=== PATIENT | female | born 1955 | race Asian ===

== ENCOUNTER 2024-11-19 23:02 | Inpatient (IN) | payer OTHER, SELFPAY ==
[2024-11-19] VITALS (10 sets, daily range): BP systolic 155–199; BP diastolic 74–105; BMI 18.4
[2024-11-19 16:01] LABS: % Basophils 0.5 % (0-2); % Eosinophils 0.3 % (0-6); % Immature Granulocytes 0.3 % (0-0.5); % Lymphocytes 14.2 % (20.5-51.1); % Monocytes 7.4 % (1.7-9.3); % Neutrophils 77.3 % (42.2-75.2); Absolute Basophils 0.1 10^3/uL (0-0.2); Absolute Eosinophils 0.1 10^3/uL (0-0.7); Absolute Immature Granulocytes 0.1 10^3/uL (0-0.05); Absolute Lymphocytes 2.5 10^3/uL (1.2-3.4); Absolute Monocytes 1.3 10^3/uL (0.1-0.6); Absolute Neutrophils 13.7 10^3/uL (1.4-6.5); Hemoglobin 15.2 g/dL (12.0-16.0); Mean Corp Hgb Conc. 32.3 g/dL (33.0-37.0); Mean Corpuscular Volume 89.7 fL (81.0-99.0); Mean Platelet Volume 9.9 fL (7.4-10.4); Nucleated Red Blood Cells % 0 %; Platelet Count 335 10^3/uL (130-400); Red Blood Cell Count 5.24 10^6/uL (4.20-5.40); Red Cell Dist. Width 13.9 % (11.5-14.5); White Blood Cell Count 17.7 10^3/uL (4.8-10.8)
[2024-11-19 16:08] LABS: INR 1.14; PT 14.9 Sec (11.4-14.6)
[2024-11-19 16:19] LABS: ALT (SGPT) 43 U/L (0-35); AST (SGOT) 46 U/L (14-36); Albumin 4.6 g/dl (3.5-5.0); Alkaline Phosphatase 68 U/L (38-126); Blood Urea Nitrogen 16 mg/dl (7-17); Calcium 10.1 mg/dl (8.4-10.2); Carbon Dioxide 25 mmol/L (22-30); Chloride 103 mmol/L (98-107); Glucose 127 mg/dl (70-99); Potassium 4.3 mmol/L (3.5-5.1); Sodium 139 mmol/L (135-145); Total Bilirubin 1.6 mg/dl (0.2-1.3); Total Protein 8.1 g/dl (6.3-8.2); eGFR > 60.00
[2024-11-19 16:32] LABS: NT-proBNP 10000 pg/ml; Troponin I 0.546 ng/ml
--- NOTE | 2024-11-19 17:39 | ED.GENMED ---
Addendum entered and electronically signed by Salazar Camp DO 11/19/24 19:36:
Update, patient originally from [place] apparently saw some retail performance coach at the [facility] please his correction was not seen at [facility]
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
Original Note:
History of Present Illness
General
Chief Complaint: Breathing Problem
Source: patient
Exam Limitations: none
Time Seen by Provider: 11/19/24 17:31
Nursing documentation reviewed up to this point in time: agreed with
History of Present Illness
History of Present Illness:
68-year-old female history of pacemaker, former smoker followed at a cardiology practice in [facility], presents with 3 days of shortness of breath no fever describes some pressure in her chest, with leg edema not on a diuretic does not sound like
she has ever had a cardiac stent placed this is not certain not on aspirin or Plavix
Past History
Past History
ED Past Medical History: Arrthythmia
ED Past Surgical History: Cardiac (Pacemaker)
Social History
Tobacco: Former smoker
Alcohol: None
Drug: None
Personal:
Living: with family
Employment: Employed
Review of Systems
Review of Systems
All Other Systems: Not applicable
Constitutional: Reports fatigue
Respiratory: Reports cough and trouble breathing
Cardiac: Reports chest pain
Phy Exam
Physical Exam
Physical Exam:
Physical Exam
General: 68-year-old female sitting upright in moderate respiratory distress
Neck: Positive JVD
Heart: Regular
Lungs: Crackles bilateral
Abdomen: Nontender
Neuro: alert and oriented. no focal neurological deficits
Skin: no rash
Psychiatric: well kept. interactive and cooperative
Extremities: 2+ edema
Scores
Heart Failure Risk
Heart Failure Risk Score: Yes
History of Stroke or TIA: No
History of intubation for respiratory distress: No
Heart rate on ED arrival >/= 110: Yes
SaO2 <90% on arrival on room air: Yes
HR >/=110 during 3min walk test (or too ill to perform test): Yes
ECG has acute ischemic changes: No
Urea >/=12mmol/L (BUN 33.6mg/dL): No
Serum CO2>/=35mmol/L: No
Troponin I or T elevated to MT Level (0.4mg/dL): Yes
NT-proBNP >/=5,000ng/L (5,000pg/ml): Yes
HF Risk Score: 6
Admission Status: VERY HIGH RISK 55.3% Consider admission to hospital
Course
Orders/Labs/Results
Orders:
Orders
11/19/24 15:14
Electrocardiogram (*1) Urgent
Reason for Study: Shortness of Breath
EKG- Treatment ONCE
11/19/24 15:40
Interrogate Pacemaker- Treatment ONCE
11/19/24 15:49
Complete Blood Count/With Diff Urgent
Comprehensive Metabolic Panel Urgent
NT-proBNP Urgent
Prothrombin Time Urgent
Troponin I Urgent
11/19/24 17:32
CR Chest Portable - 1 View Urgent
Comment:
Reason For Exam: sob
Reason Study Needs to be Portable: Patient Unstable
11/19/24 17:38
Aspirin 325 mg PO NOW STA
Enalaprilat [Vasotec] 0.625 mg IV NOW STA
Furosemide [Lasix] 80 mg IV NOW STA
Abnormal Lab Results
11/19/24
15:49
WBC 17.7 H 10^3/uL
(4.8-10.8)
MCHC 32.3 L g/dL
(33.0-37.0)
Abs Immat Gran (auto) 0.1 H 10^3/uL
(0-0.05)
Absolute Neuts (auto) 13.7 H 10^3/uL
(1.4-6.5)
Absolute Monos (auto) 1.3 H 10^3/uL
(0.1-0.6)
Neutrophils % 77.3 H %
(42.2-75.2)
Lymphocytes % 14.2 L %
(20.5-51.1)
PT 14.9 H Sec
(11.4-14.6)
Glucose 127 H mg/dl
(70-99)
Total Bilirubin 1.6 H mg/dl
(0.2-1.3)
AST 46 H U/L
(14-36)
ALT 43 H U/L
(0-35)
Troponin I 0.546 H* ng/ml
11/19/24 15:49
11/19/24 15:49
Vital Signs
Initial and Last Documented VS:
Initial Vital Signs
Temp Pulse Resp BP Pulse Ox
98 F 55 26 199/99 94
11/19/24 15:24 11/19/24 15:24 11/19/24 15:24 11/19/24 15:24 11/19/24 15:24
Last Documented Vital Signs
Temp Pulse Resp BP Pulse Ox
98 F 76 30 190/80 90
11/19/24 15:24 11/19/24 17:46 11/19/24 17:46 11/19/24 17:46 11/19/24 17:46
MDM/Problems Addressed
Differential Diagnosis Includes:
Heart failure pneumonia ACS bronchitis
MDM/Problems Addressed:
Shortness of breath
Chronic conditions affecting care: Arrhythmia
Acute Exacerbation and/or Progression of Chronic Illness: Arrhythmia
*Radiology
Radiology exam reviewed: preliminary read by ED provider and radiology read reviewed
*Pulse Oximetry
Patient hypoxic: yes
Comment: 88
*EKG
Interpreted by ED Provider?: Yes
Interpretation: abnormal
Comparison EKG: no comparison EKG present
Heart Rate: 70
Rate: normal
Rhythm: ventricular paced
Ischemia: non-specific ST changes
*Barrel Loader And Cleaner Interpretation
Rate: normal
Interpretation: normal
Heart Rate: 70
Rhythm: sinus and ventricular paced
*Critical Care Note
Total Time (30-74mins, 75-104mins- exclusive of procedures): 33
Update Note
Update Note:
Update, limited history through the patient no records in our system will treat as if it is acute exacerbation of heart failure possible ACS start aspirin diuretic RASHIDA, supplemental oxygen
Chest x-ray noted
ED Attending Note
-
Portions of this chart may have been created with voice recognition software.� Occasional wrong word or��sound alike� substitutions may have occurred due to the inherent limitations of voice recognition software.
Discharge Plan
Departure
Patient Disposition: Admit
Date of Disposition: 11/19/24
Time of Disposition: 18:01
Admit to: IVU
Presentation/result/management discussed w/ accepting MD/DO: Hospitalist
Patient with high blood pressure during this ER visit?: Yes
Condition: Serious
Discharge Problem:
Congestive heart failure (CHF), ACS (acute coronary syndrome)
Prescriptions:
No Action
albuterol sulfate [ProAir HFA] 90 mcg/actuation Hfa Aerosol Inhaler
2 puff INHALATION R Q6HPRN PRN (Reason: sob)
vitamin E 268 mg (400 unit) Capsule
268 mg PO DAILY
cholecalciferol (vitamin D3) [Vitamin D3] 25 mcg (1,000 unit) Tablet
25 mcg PO DAILY
budesonide-formoterol [Symbicort] 160-4.5 mcg/actuation Hfa Aerosol Inhaler
2 inh INHALATION R BID
Interventions
Interventions:
*Risk Screen - Suicide Last Done: 11/19/24 17:49
*General Assessment Last Done: 11/19/24 17:49
*Neglect/Abuse Screening Last Done: 11/19/24 17:49
*ED- Fall Risk Assessment Last Done: 11/19/24 17:49
*ED COVID-19 Vaccine History Last Done: 11/19/24 17:49
Discharge Date and Time
Print Language: SWEDISH
[2024-11-19] MEDS: ASPIRIN 325 MG PO (18:12)
[2024-11-19] MEDS: LASIX 80 MG IV (18:14)
[2024-11-19] MEDS: DUONEB 3 ML INH (18:51)
[2024-11-19 20:04] LABS: Troponin I 0.701 ng/ml
--- NOTE | 2024-11-19 22:39 | HPS.HSE ---
Family Physician
-
Family Physician: Dasha Castro
Chief Complaint
-
shortness of breath
History of Present Illness
HPI
68F former smoker NO prior DH visits, HX PPM iimplant followed at a cardiology practice in [facility] seen at ER
- 3 days of shortness of breath
- no fever
- central chest pressure in her chest
- leg edema not on a diuretic
Medical History
Past Medical History
Past Medical History: Reports Arrhythmia
Additional Past Medical History:
PPM implant
Past Surgical History: Reports Cardiac (PPM implant )
Social History
Tobacco: Former Smoker
Alcohol: None
Drug: None
Personal:
Living: With Family
Family History
Family History: Not pertinent
Allergies / Home Medications
Allergies reflects when Allergies were last updated in [employer].
Home Medications with original date entered in [employer]
Allergy/Medication List:
Allergies
Allergy/AdvReac Type Severity Reaction Status Date / Time
No Known Allergies Allergy Verified 11/19/24 17:48
Home Medications
albuterol sulfate 90 mcg/actuation aerosol inhaler 2 puff inhalation R Q6HPRN PRN sob 11/19/24
budesonide-formoterol HFA 160 mcg-4.5 mcg/actuation aerosol inhaler (Symbicort) 2 inh inhalation R BID 11/19/24
cholecalciferol (vitamin D3) 25 mcg (1,000 unit) tablet (Vitamin D3) 25 mcg PO DAILY 11/19/24
vitamin E 268 mg (400 unit) capsule 268 mg PO DAILY 11/19/24
Review of Systems
-
Constitutional: Reports No Symptoms
EENT: Reports No Symptoms
Respiratory: Reports See HPI
Cardiac: Reports Chest Pain
Abdomen/GI: Reports No Symptoms
: Reports No Symptoms
Musculoskeletal: Reports No Symptoms
Skin: Reports No Symptoms
Neurological: Reports No Symptoms
Endocrine: Reports No Symptoms
Hematologic/Lymphatic: Reports No Symptoms
Psych: Reports No Symptoms
Physical Exam
Vital Signs
Vital Signs
Temp Pulse Resp BP Pulse Ox
98 F 69 22 161/84 94
11/19/24 15:24 11/19/24 21:30 11/19/24 21:15 11/19/24 21:00 11/19/24 21:30
Physical Exam
General: Well Developed, Well Nourished and No Apparent Distress
HEENT: NormoCephalic, Moist mucous membranes and Atraumatic
Respiratory: Clear
Cardiac: S1/S2 and Regular Rhythm; No Murmur or Rub
GI: Soft, Non Tender, Non Distended and Normal Bowel Sounds; No Organomegaly
Rectal: Deferred by Provider
Musculoskeletal: No Clubbing, No Cyanosis and No Edema
Skin: No Rash
Neuro: Nonfocal/grossly intact
Laboratory Results
-
11/19/24 15:49
11/19/24 15:49
Laboratory Results
PT 14.9 Sec (11.4-14.6) H 11/19/24 15:49
INR 1.14 11/19/24 15:49
Total Bilirubin 1.6 mg/dl (0.2-1.3) H 11/19/24 15:49
AST 46 U/L (14-36) H 11/19/24 15:49
ALT 43 U/L (0-35) H 11/19/24 15:49
Alkaline Phosphatase 68 U/L (38-126) 11/19/24 15:49
Troponin I 0.701 ng/ml H* D 11/19/24 19:24
Data Reviewed
-
Diagnostic Radiology: Report Reviewed by me
Medical Tests (Nuc Med, Echo, EKG etc): Report Reviewed by me
Lab Data: Labs Reviewed by me
Impression/Plan
-
Selected Entries
11/19/24
17:46 11/19/24
18:49 11/19/24
19:00
Pulse 76
Resp Rate 30
Blood pressure 190/80 174/105
SaO2 90 96
Nasal Cannula flow liters per minute 2 4
Labs
11/19/24 11/19/24
15:49 19:24
WBC 17.7 H
INR 1.14
Creatinine 0.7
eGFR > 60.00
Troponin I 0.546 H* 0.701 H* D
[id number]-Upvqzopmutu Pept 31523
EKG
Ventricular-paced rhythm WITH FREQUENT PREMATURE VENTRICULAR COMPLEXES
ABNORMAL ECG
WHEN COMPARED WITH ECG OF 19-NOV-2024 15:20,
PREMATURE VENTRICULAR COMPLEXES ARE NOW PRESENT
PREMATURE ATRIAL COMPLEXES ARE NO LONGER PRESENT
VENT. RATE HAS INCREASED BY 9 BPM
CR Chest Portable - 1 View
- Mild to moderate pulmonary interstitial edema.
- Cannot rule out component of underlying chronic interstitial lung disease.
NO PRIOR hospitalist admission:
ASSESSMENT & PLAN
Tending up and elevated TPNI suspect NSTEMI
Atypical central Chest pressure
- Trend TPNI
- SL NTG PRN
- start Heparin gtt
- case d/w Dr Roberson
Acute HF type unknown
No prior visits to
- Echo in AM
- IV Lasix 40 daily
- daily Wt , daily IOs
- daily BMP
- CBC card consult
HTN emergency complicated by acute HF
- s/p IV Enalapril - somewhat partially improved BP
- add IV Hydralazine PRN for SBP > 165, DBP > 110
- start IV Lisinopril 5 mg BID - hold for SBP < 110
PPM Placement
DVT Px: LMWH
Code: Full code
IP TLM
[2024-11-19] MEDS: FLUSH (NSS) 1 FLUSH IV (22:45)
[2024-11-19] MEDS: HEPARIN 25000 UNITS/250 ML IV (23:55)
[2024-11-20] VITALS (9 sets, daily range): BP systolic 128–177; BP diastolic 57–84; BMI 17.2
[2024-11-20 00:08] LABS: APTT 28.5 Sec (23.4-35.0)
[2024-11-20 00:20] LABS: Troponin I 0.866 ng/ml
--- NOTE | 2024-11-20 00:30 | PTCARENOTE ---
Pt arrived from ED via stretcher to 3 west. Pt able to ambulate to bed [id number] with staff assistance. Pt oriented to room, call contreras within reach, will continue to monitor pt.
[2024-11-20] MEDS: LOW STRENGTH ASPIRIN 81 MG PO ×2 (00:44→08:34)
[2024-11-20] MEDS: TIGAN 200 MG IM (01:35)
[2024-11-20 06:18] LABS: APTT 31.4 Sec (23.4-35.0)
[2024-11-20 06:40] LABS: Troponin I 0.676 ng/ml
[2024-11-20 07:29] LABS: Blood Urea Nitrogen 25 mg/dl (7-17); Calcium 9.5 mg/dl (8.4-10.2); Carbon Dioxide 21 mmol/L (22-30); Chloride 104 mmol/L (98-107); Estimated Creatinine Clearance 44 ml/min; Glucose 118 mg/dl (70-99); HDL Cholesterol 36 mg/dl; LDL Cholesterol, Calculated 108 mg/dl; Potassium 3.9 mmol/L (3.5-5.1); Sodium 136 mmol/L (135-145); Total Cholesterol 164 mg/dl (50-199); Triglyceride 103 mg/dl (10-149); Very Low Density Lipoprotein 20 mg/dl (0-30); eGFR > 60.00
[2024-11-20 07:58] LABS: TSH Reflex To Free T4 3.07 uIU/ml (0.47-4.68)
[2024-11-20] MEDS: SYMBICORT 160/4.5 MCG INHALER 2 PUFF INH ×2 (08:01→18:29)
[2024-11-20] MEDS: ZESTRIL 2.5 MG PO (08:34)
--- NOTE | 2024-11-20 10:23 | W.PN.CD ---
Addendum entered and electronically signed by Kleber Roberson MD 11/20/24 11:38:
Elevated blood pressure noted
Given HFpEF will use ARB (move to Entresto if affordable) and add MRA
As BP improves will stop or decrease Ca++ erik
Add SGLT2-I if cost OK
Original Note:
Today's Communication / Plan
-
Diuresis
Echo
Education
Records request
No immediat plans for cath
Impression / Plan
-
Relish Maker in [facility]: Christian Wyatt MD with [facility]. 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
Acute on Chronic HFpEF
- She describes 2 admits to [facility] in 2022
- CXR c/w HF, pBNP 10 K+
- Echo pending
- Will work on diuresis and then GDMT
- Education
Abnormal troponin
- Suspect from heart failure
- Will see what evaluation her asp net mvc developer has done on ischemic eval (records requested, pt is a poor historian)
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
- [facility] [employer] Pacer: Normal battery, good A and V sensing, Leads OK (A threshold cannot be obtained)
- Pacer now set to DDIR 80-130 to suppress Torsades and DDIR to possibly given some AV synchrony if she has some sinus at less than 80 bpm
Persistent PAT/frequent PACs => her pacemaker was programmed VVI 55 bpm
Torsades, several runs overnight
- Watch K+/Mg
- I had pacer changed to DDIR 80-[address] [facility] [place] 04/11/2024
Hx of TB+ testing
Hx of Hep B
Subjective:
Dyspnea just a bit better
Physical Exam
Vital Signs/Labs
Vital Signs
Temp Pulse Resp BP Pulse Ox
98.6 F 56 24 177/81 96
11/20/24 07:45 11/20/24 08:34 11/20/24 07:45 11/20/24 08:34 11/20/24 07:45
11/19/24 11/20/24 11/21/24
06:59 06:59 06:59
Actual Weight 46.975 kg
11/20/24 00:27
11/20/24 05:56
PT 14.9 Sec (11.4-14.6) H 11/19/24 15:49
INR 1.14 11/19/24 15:49
APTT 31.4 Sec (23.4-35.0) 11/20/24 05:56
Triglycerides 103 mg/dl (10-149) 11/20/24 05:56
LDL Cholesterol, Calc 108 mg/dl 11/20/24 05:56
VLDL Cholesterol, Calc 20 mg/dl (0-30) 11/20/24 05:56
HDL Cholesterol 36 mg/dl 11/20/24 05:56
11/19/24
15:49
Cfo-H-Xedfzemgith Pept 82070
LAB Results
11/19/24 11/19/24 11/19/24
15:49 19:24 23:49
Troponin I 0.546 H* 0.701 H* D 0.866 H*
11/20/24
05:56
Troponin I 0.676 H*
Data Reviewed
-
Date of Service: November 20, 2024
[2024-11-20] MEDS: ROBITUSSIN DM 5 ML PO ×2 (10:28→18:16)
[2024-11-20] MEDS: PROTONIX 20 MG PO (10:28)
--- NOTE | 2024-11-20 10:31 | PTCARENOTE ---
Pt c/o reflux & cough, made aware, new orders provided, see MAR.
[2024-11-20] MEDS: APRESOLINE 10 MG IV (11:20)
[2024-11-20] MEDS: LASIX 80 MG IV ×2 (12:11→16:12)
[2024-11-20] MEDS: ALDACTONE 25 MG PO (12:11)
[2024-11-20] MEDS: DIOVAN 160 MG PO (12:11)
[2024-11-20] MEDS: ProAIR HFA INHALER 2 PUFF INH ×2 (12:21→18:32)
--- NOTE | 2024-11-20 12:27 | W.PN.HOSP.TC ---
Today's Communication/Plan
-
.
Assessment / Plan
Assessment / Plan
1. Elevated Troponin, ACS r/o
- CT-I 0.546 on admission, trended to a max of 0.866, now falling
- Repeat troponin this afternoon
- Defer EKG read to cardiology as it is tough to evaluate given paced rhythm
- Appreciate Cardiology Reccs
- Patient started on ASA/SubQ Heparin
- To obtain health records from [facility] on ischemic hx
2. Acute hypoxic respiratory insufficiency likely 2/2 diastolic heart failure exacerbation vs. diastolic dysfunction
- EF 50-55%, proBNP 10,000
- CXR (11/20): Mild to moderate pulmonary interstitial edema.
- Dry weight unknown. Follow Daily Weights. Follow BMP.
- 80mg IV Lasix in ED. Continue 80mg IV BID.
- Per Cardiology: use ARB, but favor Entresto if affordable. Add MRA. Add SGLT2 is affordable.
- Downtitrate CCB as BP improves.
3. Torsades
- Several runs over night; watch K+ and Mg+ daily
- Pacer reset by cardiology
4. History of Latent TB
- Dx 2022, treated with 9 weeks 2-drug therapy (likely Rifampin and Isoniazid)
5. History of Hepatitis B
6. Cough
- Unclear etiology, but likely secondary to pulmonary edema.
- Hx COPD tx albuterol, budesonide/formoterol
- Continue Robitussin/nebs
- Patient endorses a friend also admitted here at [facility] with pneumonia, though clinical picture makes this dx less likely
7. Rib Pain Bilateral
- Secondary to Cough
- Start Lidocaine Patch
8. Reynauds disease
- Bilateral swelling of fingers without signs of discoloration or ulceration.
- Continue to monitor.
- Consider as a potential clue to above issues as underlying chronic ILD could not be ruled out on CXR.
Anticipated Discharge: 24 - 48 hours
Subjective/Interval History
-
Date of Service: November 20, 2024
Patient seen and examined while resting in bed. Patient with a history of arrhythmia (unsure of dx) who is s/p pacemaker presented with SOB for approximately 3 days associated with pressure like sensation in chest and lower extremity edema. This
morning, patient endorse resolution of chest pain, but now has chest pain with coughing and notes that she is still coughing with occasional mucousy blood tinged sputum. She is s/p 1 80mg dose of Lasix in ED. Patient endorses a history of COPD,
Hepatitis B positivity and TB positivity (2022, treated for 9 weeks of antibiotic therapy).
Objective Data
-
Labs:
Laboratory Results
11/20/24 11/20/24 11/20/24
00:27 05:56 13:00
WBC Cancelled
Hgb Cancelled
Hct Cancelled
Plt Count Cancelled
APTT 31.4 Cancelled
Sodium 136
Potassium 3.9
Chloride 104
Carbon Dioxide 21 L
BUN 25 H
Creatinine 0.9
Glucose 118 H
Calcium 9.5
Vital Signs:
Vital Signs
Temp Pulse Resp BP Pulse Ox
97.7 F 68 26 167/78 96
11/20/24 11:15 11/20/24 12:11 11/20/24 11:15 11/20/24 12:11 11/20/24 11:40
I&O
11/19/24 11/20/24 11/21/24
06:59 06:59 06:59
Intake Total 240 / 240
Output Total 1150 / 1150
Balance -910 / -910
Review of Systems
-
History Source: Patient
Constitutional: Denies Fever
EENT: Reports No Symptoms Reported
Respiratory: Reports Cough and Trouble Breathing
Cardiac: Reports Chest Pain (resolved)
Abdomen/GI: Reports No Symptoms
Musculoskeletal: Reports Other (bilateral finger swelling )
Skin: Reports Other (chronic hypopigmentation)
Neuro: Reports No Symptoms
Psych: Reports Anxious
Physical Exam
-
General: Conversant, Cachectic and Other (appears anxious)
HEENT: Normocephalic, Atraumatic and Moist Mucous Membranes
Respiratory: Wheezes
Cardiac: Regular Rhythm and S1/S2
GI: Soft and Nontender
Musculoskeletal: No Clubbing, No Cyanosis and Other (bilateral finger swelling without signs of ulceration or discoloration (likely 2/2 known Reynaud); trace pedal edema )
Skin: Warm and Dry
Neuro: Awake, Alert and Oriented
Psych: Anxious
Data Reviewed
-
Diagnostic Radiology: Image personally visualized and interpreted, Report Reviewed by me and Discussed with Patient
Medical Tests (Nuc Med, Echo etc): Report Reviewed by me and Discussed with Patient
Labs: Labs Reviewed by me and Discussed with Patient
--- NOTE | 2024-11-20 13:51 | PTCARENOTE ---
Pt c/o SOB, informed this RN it is improving. Pt c/o tongue numbness. MD made aware, suggested anti-anxiety medication, pt made aware and refused anti-anxiety medication.
--- NOTE | 2024-11-20 14:04 | W.PN.UPDATE ---
Update Note
Progress Note Update
I saw and evaluated the patient. I reviewed the resident�s note and agree with findings and plan as documented in the resident�s note.
1. Troponin elevation, rule out ACS -patient have some troponin elevation with max troponin of 0.07. No previous reported history of CAD. ST segment evaluation difficult with patient having underlying paced rhythm. Cardiology has evaluated and
patient currently on aspirin/heparin drip. Cardiology has requested further records from previous cardiology office.
2. Acute hypoxic respiratory insufficiency/diastolic heart failure exacerbation -echocardiogram showing EF of 50 to 55%. proBNP of 10,000. No previous history of heart failure and suspicion of possible diastolic dysfunction. Patient got IV Lasix
80 mg in ER, currently getting 80 mg twice daily. Follow weight and creatinine.
Despite diuresis patient feels dyspneic although not significantly hypoxic and requiring 2 L oxygen through nasal cannula only. Offered patient Xanax to help with any anxiety symptoms that is making patient dyspneic although patient has declined.
Continue monitoring for now
3. History of latent tuberculosis -reported patient had history of latent tuberculosis which was diagnosed as part of rheumatologic workup done for Raynaud's disease. Patient reportedly finished 9 weeks of antibiotic therapy.
4. Hypertensive emergency -patient was given IV enalapri in ER. Blood pressure somewhat better controlled.
5. Dry cough/bilateral lower rib cage pain -patient having frequent dry cough, possibly from pulmonary congestion. Minimal wheezing on exam does have history of COPD. Maintained on Robitussin/nebulizer therapy. Lidocaine patch provided for lower
rib cage pain. With history of Raynaud's unsure if secondary in nature,
6. COPD -no formal PFT? Does not follow-up with adult education professional . According to patient provided Symbicort/albuterol by primary care.
7. Raynaud's disease -bilateral finger swelling although No signs of sclerodactyly or complicating ulcer/discoloration. Patient manages with cold prophylaxis/hot water.
Total time spent : 53 mins
[2024-11-20 14:10] LABS: Magnesium 1.9 mg/dl (1.6-2.3)
--- NOTE | 2024-11-20 14:27 | CON.PUL ---
Consultation
Consultation Request
Date/Time Consultation Requested: 11/20/24
Date/Time Consultation Performed: 11/20/24
Performing Provider: Shiv
Reason for Consultation: SOB
Medical History
-
History of Present Illness:
Patient is a 68-year-old female with previous history of pacemaker, presenting to ER for shortness of breath. On arrival she was noted to have paced rhythm on EKG with mild to moderate pulmonary edema on chest x-ray. proBNP was above 10,000, BP
on arrival 199/99. She is admitted for congestive heart failure exacerbation.
She has prior remote history of latent tuberculosis. She is also maintained on Symbicort and albuterol for unknown lung condition. 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 No prior PFTs for review.
Lived in [place], emigrated to [place] in past 11 years. Former smoker, quit 2-3 years ago, total usage about 1/4 PPD for 25 years. She was told she has COPD in past, placed on inhalers. Does not recall having PFTs, possibly done at [facility] during her
hospitalization for PNA in 2022. Records not available for review.
Past Medical History
Past Medical History: Other (see list below)
Social History
Tobacco: Former Smoker
Alcohol: None
Drug: None
Family History
Family History: Reviewed & Not Pertinent
Allergies / Home Medications
Allergies
Allergy/AdvReac Type Severity Reaction Status Date / Time
No Known Allergies Allergy Verified 11/19/24 17:48
Home Medications
�Medication �Instructions �Recorded �Confirmed �Last Taken �Type
albuterol sulfate 90 mcg/actuation 2 puff inhalation R Q6HPRN PRN sob 11/19/24 11/19/24 Unknown History
aerosol inhaler
budesonide-formoterol HFA 160 2 inh inhalation R BID 11/19/24 11/19/24 11/18/24 History
mcg-4.5 mcg/actuation aerosol
inhaler (Symbicort)
cholecalciferol (vitamin D3) 25 25 mcg PO DAILY 11/19/24 11/19/24 11/18/24 History
mcg (1,000 unit) tablet (Vitamin
D3)
vitamin E 268 mg (400 unit) capsule 268 mg PO DAILY 11/19/24 11/19/24 11/18/24 History
Review of Systems
-
History Source: Patient
All other systems: Negative unless noted
Vitals / Labs / Diagnostic Testing
Vital Signs
Temp Pulse Resp BP Pulse Ox
97.9 F 68 32 158/79 95
11/20/24 13:10 11/20/24 13:10 11/20/24 13:10 11/20/24 13:10 11/20/24 13:10
Lab Data
11/20/24 00:27
11/20/24 05:56
Laboratory Results
11/19/24 11/19/24 11/20/24
15:49 23:49 05:56
PT 14.9 H
INR 1.14
APTT 28.5 31.4
11/20/24
13:00
PT
INR
APTT Cancelled
Diagnostic Testing:
Physical Exam
-
HEENT: Normocephalic, Anicteric and Moist Mucous Membranes
Cardiovascular: S1/S2 and Regular Rhythm
Respiratory: Non-Labored Respirations and Other (barrel chest, decreased overall BS, minimal crackles noted)
GI: Soft, Non Distended and Non Tender
Neurology: Awake, Alert, Oriented and No Motor Deficits
Skin: Warm, Dry and Other (hyperpigmentation noted throughout)
General: Comfortable and Other (NAD, thin appearing)
Assessment
-
Patient is a 68-year-old female with previous history of pacemaker, presenting to ER for shortness of breath. On arrival she was noted to have paced rhythm on EKG with mild to moderate pulmonary edema on chest x-ray. proBNP was above 10,000, BP
on arrival 199/99. She is admitted for congestive heart failure exacerbation.
Acute HFpEF exacerbation
Pulmonary edema on CXR, proBNP 10K
SOB
Acute hypoxic respiratory insufficiency
Hypertensive urgency
Leukocytosis
Elevated trops
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
Raynaud's disease
Latent TB history
Plan
Hypoxemia noted on arrival, O2 ramesh 86% on RA
Currently saturating >90% on 2L NC, not known to be on home O2
Home O2 evaluation eventually
Prior history of lung disease is noted including: She has prior remote history of latent tuberculosis. She notes that she received the BCG vaccine in past.
Never told in past she had +PPD or active TB--denies complaints suggestive active infection
H/o COPD, possible noted from last hospitalization at [facility] for PNA in 2022
She is also maintained on Symbicort and albuterol but does not find it helpful
No prior PFTs for review
Suspect AE CHF, proBNP 10K, placed on IV diuresis
CXR/CT obtained indicating pulmonary edema
No prior imaging available for review
ECHO results reviewed--stable function, RV flattening noted, agree with d-dimer
CTA to r/o PE if high
Moderate PH noted
Smoking history noted--former use 1/4 PPD for 25 years, quit 2-3 years ago
Smoking cessation encouraged
Thin, BMI 17
Dietary consult for underweight status
Will need outpatient pulmonary evaluation in our office for PFTs and 6MWT
Reviewed with patient, we will arrange closer to time of discharge
We will follow
Diagnostic Data
Chest X-Ray: 11/19/24- Mild to moderate pulmonary interstitial edema.
CT Scan:
Echo: 11/20/24- Normal left ventricular size with low normal systolic function. LVEF 50-55%. Diastolic septal flattening consistent with RV volume overload. Mild to moderate mitral regurgitation.
Moderate tricuspid regurgitation. PASP 54 mmHg. No prior study available for comparison.
PFT's:
Reports and relevant images were personally reviewed.
Total time spent on this consultation __65__ minutes which includes review of history, physical exam, medications, laboratory data, personal review of imaging, extensive review of outpatient records, discussion with care team and respiratory therapy.
[2024-11-20] MEDS: LIDOCAINE 4% PATCH 1 PATCH TOPICAL ×2 (15:06)
[2024-11-20 15:41] LABS: D-Dimer 0.81 ug/mlFEU (0.00-0.50)
[2024-11-20 16:03] LABS: Troponin I 0.753 ng/ml
--- NOTE | 2024-11-20 16:30 | PTCARENOTE ---
D dimer and troponin result elevated, pt c/o PICHARDO. made aware.
[2024-11-20] MEDS: VENTOLIN NEBULES 2.5 MG INH (20:08)
[2024-11-21] MEDS: APRESOLINE 10 MG IV (02:48)
[2024-11-21 03:00] VITALS: BP 170/79
[2024-11-21 03:12] VITALS: BMI 16.6
[2024-11-21 07:00] VITALS: BP 153/68
[2024-11-21] MEDS: VENTOLIN NEBULES 2.5 MG INH ×3 (07:30→19:10)
[2024-11-21] MEDS: SYMBICORT 160/4.5 MCG INHALER 2 PUFF INH ×2 (07:30→19:10)
[2024-11-21] MEDS: PROTONIX 20 MG PO (07:39)
[2024-11-21] MEDS: LOW STRENGTH ASPIRIN 81 MG PO (07:39)
[2024-11-21] MEDS: DIOVAN 160 MG PO (07:39)
[2024-11-21] MEDS: LASIX 80 MG IV (07:40)
[2024-11-21] MEDS: ALDACTONE 25 MG PO (07:41)
[2024-11-21] MEDS: LIDOCAINE 4% PATCH 1 PATCH TOPICAL ×2 (07:42)
[2024-11-21 08:18] LABS: Hematocrit 40.8 % (37.0-47.0); Hemoglobin 13.5 g/dL (12.0-16.0); Mean Corp Hgb Conc. 33.1 g/dL (33.0-37.0); Mean Corpuscular Volume 87.6 fL (81.0-99.0); Mean Platelet Volume 10.6 fL (7.4-10.4); Platelet Count 364 10^3/uL (130-400); Red Blood Cell Count 4.66 10^6/uL (4.20-5.40); Red Cell Dist. Width 13.8 % (11.5-14.5); White Blood Cell Count 18.9 10^3/uL (4.8-10.8)
[2024-11-21 08:48] LABS: Blood Urea Nitrogen 33 mg/dl (7-17); Calcium 9.2 mg/dl (8.4-10.2); Carbon Dioxide 31 mmol/L (22-30); Chloride 99 mmol/L (98-107); Estimated Creatinine Clearance 43 ml/min; Glucose 107 mg/dl (70-99); Potassium 3.2 mmol/L (3.5-5.1); Sodium 136 mmol/L (135-145); eGFR > 60.00
[2024-11-21 09:06] LABS: Glycohemoglobin (HgbA1c) 5.7 % (4.0-5.6)
--- NOTE | 2024-11-21 09:06 | W.PN.CD ---
Addendum entered and electronically signed by Cristi Sanchez MD 11/21/24 09:35:
Heparin should be discontinued as this does not appear to be ACS.
Original Note:
Today's Communication / Plan
-
- Echocardiogram 11/20/2024: LVEF 50-55%, mild to moderate mitral regurgitation, moderate tricuspid regurgitation, estimated PAP 54 mmHg.
- The patient is not on a diuretic at home; BUN increasing on very aggressive diuretic regimen of Lasix 80 mg IV BID.
- Will transition to Lasix 40 mg PO daily, which should be home dose.
- Will add Farxiga for GDMT.
- Will start Toprol XL 25 mg daily.
Impression / Plan
-
Piping Engineer in [facility]: Christian Wyatt MD with [facility]. Also has a home lighting adviser in [place]
Acute on Chronic HFpEF
- She describes 2 admits to [facility] in 2022
- CXR c/w HF, pBNP 10 K+
- Echocardiogram 11/20/2024: LVEF 50-55%, mild to moderate mitral regurgitation, moderate tricuspid regurgitation, estimated PAP 54 mmHg.
- Will work on diuresis and then GDMT
- The patient is not on a diuretic at home; BUN increasing on very aggressive diuretic regimen of Lasix 80 mg IV BID.
- Will transition to Lasix 40 mg PO daily, which should be home dose.
- Will add Farxiga for GDMT.
Abnormal troponin
- Suspect from heart failure and uncontrolled HTN on admission (199/99 mmHg).
HTN:
- Improved.
- Continue current doses of Diovan and spironolactone.
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
- Pacemaker [facility] in [place] 04/11/2024.
- [facility] Pacer: Normal battery, good A and V sensing, Leads OK (A threshold cannot be obtained)
- Pacer now set to DDIR 80-130 to suppress Torsades and DDIR to possibly given some AV synchrony if she has some sinus at less than 80 bpm.
Persistent PAT/frequent PACs => her pacemaker was programmed VVI 55 bpm.
- Will start Toprol XL 25 mg daily.
Hx of TB+ testing
Hx of Hep B
Subjective:
No major events overnight.
Physical Exam
Vital Signs/Labs
Vital Signs
Temp Pulse Resp BP Pulse Ox
99.0 F 81 20 153/68 96
11/21/24 07:00 11/21/24 07:40 11/21/24 07:33 11/21/24 07:40 11/21/24 07:33
11/20/24 11/21/24 11/22/24
06:59 06:59 06:59
Actual Weight 46.975 kg 45.132 kg
11/21/24 07:43
11/21/24 07:43
PT 14.9 Sec (11.4-14.6) H 11/19/24 15:49
INR 1.14 11/19/24 15:49
APTT Cancelled 11/20/24 13:00
Magnesium 2.0 mg/dl (1.6-2.3) 11/21/24 07:43
Triglycerides 103 mg/dl (10-149) 11/20/24 05:56
LDL Cholesterol, Calc 108 mg/dl 11/20/24 05:56
VLDL Cholesterol, Calc 20 mg/dl (0-30) 11/20/24 05:56
HDL Cholesterol 36 mg/dl 11/20/24 05:56
11/19/24
15:49
Ccu-C-[id number] Pept 79502
LAB Results
11/19/24 11/19/24 11/19/24
15:49 19:24 23:49
Troponin I 0.546 H* 0.701 H* D 0.866 H*
11/20/24 11/20/24 11/20/24
05:56 13:40 14:28
Troponin I 0.676 H* Cancelled Cancelled
11/20/24
15:16
Troponin I 0.753 H*
Physical Exam
Constitutional: No acute distress
EENT: Anicteric
Cardiovascular: Rhythm & rate is regular, Systolic murmur absent, Pedal edema present (trace) and S1S2 is normal
Respiratory: Respiratory effort normal and Crackles Present (Bibasilar)
GI: Soft
Neuro/Psych: AO x 3
Other: Skin (Warm, dry, intact)
Data Reviewed
-
Date of Service: November 21, 2024
EKG: Tracing Personally Visualized and interpreted (Telemetry: Paced rhythm)
Echo: Report Reviewed by me (Echocardiogram 11/20/2024: LVEF 50-55%, mild to moderate mitral regurgitation, moderate tricuspid regurgitation, estimated PAP 54 mmHg.)
Medical Tests (PFT, Pathology etc): Discussed with Patient
Labs: Labs Reviewed by me
--- NOTE | 2024-11-21 09:47 | CM ---
Consult for med pricing completed yesterday for polo kumar and sander. All 3 of the medications are $12.15 each for a 30 day supply.
[2024-11-21] MEDS: FARXIGA 10 MG PO (10:39)
[2024-11-21 11:00] VITALS: BP 136/56
--- NOTE | 2024-11-21 11:11 | W.PN.PUL3 ---
Today's Communication / Plan
-
Stable on RA, not on O2
Diuresis per cards team, SOB improved
Encouraged OOB, PT eval
OP Pulm FU recommended, contact left in chart
Discharge planning per team
We will sign off at this time, please call with questions
Assessment
-
Patient is a 68-year-old female with previous history of pacemaker, presenting to ER for shortness of breath. On arrival she was noted to have paced rhythm on EKG with mild to moderate pulmonary edema on chest x-ray. proBNP was above 10,000, BP
on arrival 199/99. She is admitted for congestive heart failure exacerbation.
Acute HFpEF exacerbation
Pulmonary edema on CXR, proBNP 10K
SOB
Acute hypoxic respiratory insufficiency
Hypertensive urgency
Leukocytosis
Elevated trops
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
Raynaud's disease
Latent TB history
Plan
Hypoxemia noted on arrival, O2 ramesh 86% on RA--resolved
Currently saturating >90% on RA
Prior history of lung disease is noted including: She has prior remote history of latent tuberculosis. She notes that she received the BCG vaccine in past.
Never told in past she had +PPD or active TB--denies complaints suggestive active infection
There is history of remote treatment
H/o COPD, possible noted from last hospitalization at [facility] for PNA in 2022
She is also maintained on Symbicort and albuterol but does not find it helpful
No prior PFTs for review
Suspect AE CHF, proBNP 10K, placed on IV diuresis
CXR/CT obtained indicating pulmonary edema
No prior imaging available for review
ECHO results reviewed--stable function, RV flattening noted, agree with d-dimer
CTA to r/o PE if high
Moderate PH noted
Smoking history noted--former use 1/4 PPD for 25 years, quit 2-3 years ago
Smoking cessation encouraged
Thin, BMI 17
Dietary consult for underweight status
Will need outpatient pulmonary evaluation in our office for PFTs and 6MWT
Reviewed with patient, we will arrange closer to time of discharge
Diagnostic Data
Chest X-Ray: 11/19/24- Mild to moderate pulmonary interstitial edema.
CT Scan:
Echo: 11/20/24- Normal left ventricular size with low normal systolic function. LVEF 50-55%. Diastolic septal flattening consistent with RV volume overload. Mild to moderate mitral regurgitation.
Moderate tricuspid regurgitation. PASP 54 mmHg. No prior study available for comparison.
PFT's:
Reports and relevant images were personally reviewed.
Total time spent on this consultation __45__ minutes which includes review of history, physical exam, medications, laboratory data, personal review of imaging, extensive review of outpatient records, discussion with care team and respiratory therapy.
Subjective Data
-
Date of Service:
Date of Service: November 21, 2024
Chief Complaint: Pulmonary Follow Up
Subjective:
Off O2, no further SOB
Has cough mostly dry, but mild
No other complaints, AVSS
Objective Data
Data Reviewed
Vital Signs / I&O / Oxygen:
Vital Signs
Temp Pulse Resp BP Pulse Ox
97.5 F 81 17 136/56 98
11/21/24 11:00 11/21/24 11:00 11/21/24 11:00 11/21/24 11:00 11/21/24 11:00
Intake and Output
11/20/24 11/21/24 11/22/24
06:59 06:59 06:59
Intake Total 240 / 240 1080 / 1080
Output Total 1150 / 1150 2100 / 2100
Balance -910 / -910 -1020 / -1020
SaO2 98
Nasal Cannula flow liters per 2
minute
Physical Exam
General: Comfortable and Other (NAD, thin appearing)
HEENT: Normocephalic, Anicteric and Moist Mucous Membranes
Cardiovascular: S1-S2 and Regular Rhythm
Respiratory: Clear and Non-Labored Respirations
GI: Soft, Non Distended and Non Tender
Neurology: Awake, Alert, Oriented and No Motor Deficits
Skin: Warm, Dry and Other (hyperpigmentation noted on skin)
Labs/Micro/Reports
Lab Data
11/21/24 07:43
11/21/24 07:43
Laboratory Results
11/20/24
13:00
APTT Cancelled
--- NOTE | 2024-11-21 12:18 | W.PN.HOSP.TC ---
Today's Communication/Plan
-
.
Assessment / Plan
Assessment / Plan
1. Elevated Troponin, ACS r/o
- CT-I 0.546 on admission, trended to a max of 0.866, now falling
- Troponin started downtrending to 0.676 and then back up to 0.753. Cardiology feels that this is secondary to heart failure and uncontrolled hypertension on admission and no ACS workup necessary.
- Defer EKG read to cardiology as it is tough to evaluate given paced rhythm
- Appreciate Cardiology Reccs
- Patient started on ASA/SubQ Heparin
- To obtain health records from [facility] on ischemic hx
2. Acute hypoxic respiratory insufficiency likely 2/2 diastolic heart failure exacerbation vs. diastolic dysfunction
- EF 50-55%, proBNP 10,000
- CXR (11/20): Mild to moderate pulmonary interstitial edema.
- Dry weight unknown. Follow Daily Weights. Follow BMP.
- Weight down 1.8 kg since yesterday
- 80mg IV Lasix in ED and started on aggressive IV diuresis with 80 mg twice daily.
- BUN elevated secondary to aggressive diuresis, transition to Lasix 40 mg p.o. daily. (This will be home dose)
- Per Cardiology: use ARB, but favor Entresto if affordable. Add MRA. Add Farxiga.
- Downtitrate CCB as BP improves.
3. Torsades/persistent PAT/frequent PACs
- Several runs over night; watch K+ and Mg+ daily
- Pacer reset by cardiology
- Magnesium 2.0, potassium 3.2. Likely in setting of Lasix. Replete potassium today.
- Toprol-XL 25 mg daily started by cardiology
4. History of Latent TB
- Dx 2022, treated with 9 weeks 2-drug therapy (likely Rifampin and Isoniazid)
5. History of Hepatitis B
6. Cough
- Unclear etiology, but likely secondary to pulmonary edema.
- Hx COPD tx albuterol, budesonide/formoterol
- Continue Robitussin/nebs
- Patient endorses a friend also admitted here at [facility] with pneumonia, though clinical picture makes this dx less likely
- Improved today
7. Rib Pain Bilateral
- Secondary to Cough
- Start Lidocaine Patch
8. Reynauds disease
- Bilateral swelling of fingers without signs of discoloration or ulceration.
- Continue to monitor.
- Consider as a potential clue to above issues as underlying chronic ILD could not be ruled out on CXR.
- Patient last saw a chip separator in 2002 in [place]; would like referral to outpatient rheum here after d/c
Anticipated Discharge: Within 24 hours
Subjective/Interval History
-
Date of Service: November 21, 2024
Patient seen and examined while resting comfortably in bed, ordering food from the cafeteria. Patient states that she feels that she is doing much better today. States that breathing is much easier. Patient does endorse that she still feels she
has some mucus she needs to bring up. Otherwise denies chest pain, dizziness, lower extremity edema. No acute complaints. No major events overnight.
Objective Data
-
Labs:
Laboratory Results
11/21/24
07:43
WBC 18.9 H
Hgb 13.5
Hct 40.8
Plt Count 364
Sodium 136
Potassium 3.2 L
Chloride 99
Carbon Dioxide 31 H
BUN 33 H
Creatinine 0.9
Glucose 107 H
Calcium 9.2
Vital Signs:
Vital Signs
Temp Pulse Resp BP Pulse Ox
97.5 F 81 17 136/56 98
11/21/24 11:00 11/21/24 11:00 11/21/24 11:00 11/21/24 11:00 11/21/24 11:00
I&O
06/10/25 06/11/25 06/12/25
06:59 06:59 06:59
Intake Total 240 / 240 1080 / 1080
Output Total 1150 / 1150 2100 / 2100
Balance -910 / -910 -1020 / -1020
Review of Systems
-
History Source: Patient
Constitutional: Reports No Symptoms
Respiratory: Reports Cough (Improved.) and Trouble Breathing (Markedly improved.)
Cardiac: Reports No Symptoms
Abdomen/GI: Reports No Symptoms
Musculoskeletal: Reports Other (Swelling of bilateral digits of hands, chronic secondary to Raynaud's.)
Skin: Reports No Symptoms
Neuro: Reports No Symptoms
Physical Exam
-
General: No Apparent Distress, Comfortable and Conversant; Negative Respiratory Distress
HEENT: Normocephalic, Atraumatic and Moist Mucous Membranes
Respiratory: Wheezes (Occasional), Crackles (Mild) and Non Labored Respirations
Cardiac: Regular Rhythm and S1/S2
GI: Soft and Nontender
Musculoskeletal: No Clubbing, No Cyanosis and Other (No lower extremity edema. Bilateral swelling of digits of hands secondary to chronic Raynaud's phenomena)
Skin: Warm and Dry
Neuro: Awake, Alert, Oriented and Nonfocal/Grossly Intact
Psych: Calm
Data Reviewed
-
Diagnostic Radiology: Image personally visualized and interpreted, Report Reviewed by me and Discussed with Patient
Labs: Labs Reviewed by me and Discussed with Patient
[2024-11-21] MEDS: KCL 40 MEQ PO (12:41)
[2024-11-21 15:00] VITALS: BP 146/71
--- NOTE | 2024-11-21 16:03 | CM ---
CM attempted to complete IA for this patient. Pt was asleep and moaning. RN notified of same.
CM will follow up with patient in AM.
[2024-11-21] MEDS: ROBITUSSIN DM 5 ML PO (16:31)
[2024-11-21 19:00] VITALS: BP 149/66
[2024-11-21] MEDS: TYLENOL 650 MG PO (21:09)
[2024-11-21 23:00] VITALS: BP 141/69
[2024-11-22 03:00] VITALS: BP 150/82
[2024-11-22 05:34] VITALS: BMI 16.3
[2024-11-22 05:35] LABS: Hematocrit 42.7 % (37.0-47.0); Mean Corp Hgb Conc. 32.8 g/dL (33.0-37.0); Mean Corpuscular Hgb 29.2 pg (27.0-31.0); Mean Platelet Volume 9.6 fL (7.4-10.4); Platelet Count 379 10^3/uL (130-400); Red Cell Dist. Width 13.7 % (11.5-14.5); White Blood Cell Count 15.4 10^3/uL (4.8-10.8)
[2024-11-22 05:54] LABS: Blood Urea Nitrogen 26 mg/dl (7-17); Calcium 9.7 mg/dl (8.4-10.2); Carbon Dioxide 36 mmol/L (22-30); Chloride 100 mmol/L (98-107); Estimated Creatinine Clearance 41 ml/min; Glucose 116 mg/dl (70-99); Potassium 3.3 mmol/L (3.5-5.1); Sodium 140 mmol/L (135-145); eGFR > 60.00
[2024-11-22 07:00] VITALS: BP 159/77
[2024-11-22 07:38] LABS: Magnesium 2.2 mg/dl (1.6-2.3)
[2024-11-22] MEDS: ALDACTONE 25 MG PO (07:41)
[2024-11-22] MEDS: LOW STRENGTH ASPIRIN 81 MG PO (07:41)
[2024-11-22] MEDS: FARXIGA 10 MG PO (07:41)
[2024-11-22] MEDS: DIOVAN 160 MG PO (07:41)
[2024-11-22] MEDS: LASIX 40 MG PO (07:41)
[2024-11-22] MEDS: PROTONIX 20 MG PO (07:41)
[2024-11-22] MEDS: SYMBICORT 160/4.5 MCG INHALER 2 PUFF INH (07:42)
[2024-11-22] MEDS: LIDOCAINE 4% PATCH 1 PATCH TOPICAL ×2 (07:42)
[2024-11-22] MEDS: VENTOLIN NEBULES 2.5 MG INH ×2 (07:42→14:49)
--- NOTE | 2024-11-22 08:17 | W.PN.HOSP.TC ---
Today's Communication/Plan
-
.
Assessment / Plan
Assessment / Plan
1. Elevated Troponin, ACS r/o
- CT-I 0.546 on admission, trended to a max of 0.866, now falling
- Troponin started downtrending to 0.676 and then back up to 0.753. Cardiology feels that this is secondary to heart failure and uncontrolled hypertension on admission and no ACS workup necessary.
- Defer EKG read to cardiology as it is tough to evaluate given paced rhythm
- Appreciate Cardiology Reccs
- Taken off of hep gtt
- To obtain health records from [facility] on ischemic hx
2. Acute hypoxic respiratory insufficiency likely 2/2 diastolic heart failure exacerbation vs. diastolic dysfunction
- EF 50-55%, proBNP 10,000
- CXR (11/20): Mild to moderate pulmonary interstitial edema.
- Dry weight unknown.
- Weight down over admission
- 80mg IV Lasix in ED and started on aggressive IV diuresis with 80 mg twice daily.
- Transitioned to Lasix 40mg once daily
- BUN elevated secondary to aggressive diuresis, transition to Lasix 40 mg p.o. daily. (This will be home dose)
- Per Cardiology: use ARB, but favor Entresto if affordable. Add MRA. Add Farxiga.
- Downtitrate CCB as BP improves.
- Home O2 assessment (11/22): 96% RA w/ ambulation
3. Torsades/persistent PAT/frequent PACs
- Several runs over night; watch K+ and Mg+ daily
- Pacer reset by cardiology
- Magnesium 2.0, potassium 3.2. Likely in setting of Lasix. Replete potassium today.
- Elixir given, patient preferred
- Toprol-XL 25 mg daily started by cardiology (11/20)
4. History of Latent TB
- Dx 2022, treated with 9 weeks 2-drug therapy (likely Rifampin and Isoniazid)
5. History of Hepatitis B
6. Cough
- Unclear etiology, but likely secondary to pulmonary edema.
- Hx COPD tx albuterol, budesonide/formoterol
- Continue Robitussin/Lidocaine patches
7. Rib Pain Bilateral
- Secondary to Cough
- Lidocaine Patch
8. Reynauds disease
- Bilateral swelling of fingers without signs of discoloration or ulceration.
- Continue to monitor.
- Consider as a potential clue to above issues as underlying chronic ILD could not be ruled out on CXR.
- Patient last saw a commercial reporter in 2002 in [place]; would like referral to outpatient rheum here after d/c
9. Hx COPD
- Follow up with pulmonology for formal PFT testing
Anticipated Discharge: Today
Subjective/Interval History
-
Date of Service: November 22, 2024
Patient seen and examined while resting comfortably in bed and enjoying her breakfast. Patient states she does not feel short of breath but endorses continued cough and rib pain when coughing. Patient was not able to swallow K pill, and says she
would prefer to have the elixir. Otherwise no acute complaints, would like referral information on pulmonary, cardiology, rheumatology and primary care since she is new to the area.
Objective Data
-
Labs:
Laboratory Results
11/22/24
05:22
WBC 15.4 H
Hgb 14.0
Hct 42.7
Plt Count 379
Sodium 140
Potassium 3.3 L
Chloride 100
Carbon Dioxide 36 H
BUN 26 H
Creatinine 0.9
Glucose 116 H
Calcium 9.7
Vital Signs:
Vital Signs
Temp Pulse Resp BP Pulse Ox
97.7 F 80 16 159/77 98
11/22/24 03:00 11/22/24 07:48 11/22/24 07:48 11/22/24 07:41 11/22/24 07:48
I&O
11/21/24 11/22/24 11/23/24
06:59 06:59 06:59
Intake Total 1080 / 1080 840 / 840
Output Total 2099
Balance -1020 / -1020 840 / 840
Review of Systems
-
History Source: Patient
Constitutional: Denies Fever
Respiratory: Reports Cough and Pleurisy
Cardiac: Reports No Symptoms
Abdomen/GI: Reports No Symptoms
Musculoskeletal: Reports No Symptoms
Physical Exam
-
General: No Apparent Distress, Comfortable and Conversant
HEENT: Normocephalic, Atraumatic and Moist Mucous Membranes
Respiratory: Rhonchi and Non Labored Respirations; Negative Wheezes
Cardiac: Regular Rhythm and S1/S2
GI: Soft and Nontender
Musculoskeletal: No Clubbing, No Cyanosis, No Edema and Other
Skin: Warm and Dry
Neuro: Awake, Alert and Oriented
Psych: Calm
Data Reviewed
-
Labs: Labs Reviewed by me and Discussed with Patient
[2024-11-22] MEDS: KCL ELIXIR 40 MEQ PO (08:38)
--- NOTE | 2024-11-22 08:38 | W.PN.CD ---
Today's Communication / Plan
-
- Lasix 40 mg PO daily, which should be home dose.
- Started on Toprol XL 25 mg daily.
- No further cardiac recommendations at this time; outpatient follow-up with Cardiology (Dr. Roberson).
Impression / Plan
-
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
Acute on Chronic HFpEF
- She describes 2 admits to [facility] in 2022
- CXR c/w HF, pBNP 10 K+
- Echocardiogram 11/20/2024: LVEF 50-55%, mild to moderate mitral regurgitation, moderate tricuspid regurgitation, estimated PAP 54 mmHg.
- Lasix 40 mg PO daily, which should be home dose.
- Continue Farxiga for GDMT.
Abnormal troponin
- Suspect from heart failure and uncontrolled HTN on admission (199/99 mmHg).
HTN:
- Improved.
- Continue current dose of Diovan.
- Continue current dose of spironolactone.
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
- Pacemaker [facility] in [place] 04/11/2024.
- [employer] Pacer: Normal battery, good A and V sensing, Leads OK (A threshold cannot be obtained)
- Pacer now set to DDIR 80-130 to suppress Torsades and DDIR to possibly given some AV synchrony if she has some sinus at less than 80 bpm.
- Currently stable.
Persistent PAT/frequent PACs => her pacemaker was programmed VVI 55 bpm.
- Started on Toprol XL 25 mg daily.
Hx of TB+ testing
Hx of Hep B
Subjective:
No cardiac complaints this a.m. Shortness of breath improved.
Physical Exam
Vital Signs/Labs
Vital Signs
Temp Pulse Resp BP Pulse Ox
98.1 F 80 16 159/77 98
11/22/24 07:00 11/22/24 07:48 11/22/24 07:48 11/22/24 07:41 11/22/24 07:48
11/21/24 11/22/24 11/23/24
06:59 06:59 06:59
Actual Weight 45.132 kg 44.543 kg
11/22/24 05:22
11/22/24 05:22
PT 14.9 Sec (11.4-14.6) H 11/19/24 15:49
INR 1.14 11/19/24 15:49
APTT Cancelled 11/20/24 13:00
Magnesium 2.2 mg/dl (1.6-2.3) 11/22/24 05:22
Triglycerides 103 mg/dl (10-149) 11/20/24 05:56
LDL Cholesterol, Calc 108 mg/dl 11/20/24 05:56
VLDL Cholesterol, Calc 20 mg/dl (0-30) 11/20/24 05:56
HDL Cholesterol 36 mg/dl 11/20/24 05:56
11/19/24
15:49
Yiy-M-[id number] Pept 41565
LAB Results
11/19/24 11/19/24 11/19/24
15:49 19:24 23:49
Troponin I 0.546 H* 0.701 H* D 0.866 H*
11/20/24 11/20/24 11/20/24
05:56 13:40 14:28
Troponin I 0.676 H* Cancelled Cancelled
11/20/24
15:16
Troponin I 0.753 H*
Physical Exam
Constitutional: No acute distress and Comfortable
EENT: Anicteric
Cardiovascular: Rhythm & rate is regular, Pedal edema is absent, Systolic murmur present (06/18) and S1S2 is normal
Respiratory: Respiratory effort normal, Wheeze Absent and Rhonchi Present
GI: Soft
Neuro/Psych: AO x 3
Other: Skin (Warm, dry, intact)
Data Reviewed
-
Date of Service: November 22, 2024
EKG: Tracing Personally Visualized and interpreted (Telemetry: paced)
Echo: Report Reviewed by me (EF 50-55%, moderate TR, PASP 54 mmHg)
Labs: Labs Reviewed by me
[2024-11-22] MEDS: TOPROL XL 25 MG PO (09:50)
[2024-11-22 11:00] VITALS: BP 117/66
--- NOTE | 2024-11-22 12:24 | CM ---
Pt is likely ready for discharge home today or tomorrow. Pt is looking forward to returning home and will have a friend will drive her to belt picker her prescriptions and take her home.
IMM reviewed and signed by patient.
Plan: Discharge to home with no identified needs.
[2024-11-22] MEDS: ROBITUSSIN DM 5 ML PO (12:55)
--- NOTE | 2024-11-22 14:31 | W.PN.UPDATE ---
Update Note
Progress Note Update
I saw and evaluated the patient. I reviewed the resident�s note and agree with findings and plan as documented in the resident�s note.
1. Troponin elevation, ACS less likely -patient have some troponin elevation with max troponin of 0.86. No previous reported history of CAD. ST segment evaluation difficult with patient having underlying paced rhythm. Cardiology has evaluated
patient. Patient has been taken off of heparin drip. cardiology has requested further records from previous cardiology office.
2. Acute hypoxic respiratory insufficiency/diastolic heart failure exacerbation - resolved Hypoxia, echocardiogram showing EF of 50 to 55%. proBNP of 10,000. No previous history of heart failure and suspicion of possible diastolic dysfunction.
Patient was given high-dose of IV Lasix for last 48 hours, this has been switched to oral Lasix 40mg/d. D-dimer of 0.8, no indication for CT chest PE. Home oxygen evaluation cleared, sating 96% on RA with ambulation.
3. History of latent tuberculosis -reported patient had history of latent tuberculosis which was diagnosed as part of rheumatologic workup done for Raynaud's disease. Patient reportedly finished 9 weeks of latent TB therapy.
4. Hypertensive emergency -patient was given IV enalapri in ER. Patient started on valsartan and Aldactone by cardiology, both over this new medication. With patient simultaneously required diuresis as well at risk of hyperkalemia if patient goes
into volume depletion/renal failure. Closely monitor.
5. Dry cough/bilateral lower rib cage pain -patient having frequent dry cough, possibly from pulmonary congestion. Minimal wheezing on exam does have history of COPD. Maintained on Robitussin/nebulizer therapy. Lidocaine patch provided for lower
rib cage pain. With history of Raynaud's unsure if secondary in nature and have systemis sclerosis as well. Patient will require follow-up with crop roller in the office.
6. COPD - According to patient provided Symbicort/albuterol by primary care. Patient does not have any formal PFT in the past, patient will require to follow-up with crop roller in office.
7. Raynaud's disease -bilateral finger swelling although No signs of sclerodactyly or complicating ulcer/discoloration. Patient manages with cold prophylaxis/hot water.
More than 30 minutes spent in discharge including
Final examination of the patient
Summarizing hospital stay
Instructions for continuing care to all relevant caregivers
Preparation of discharge records, prescriptions, and referral forms
Total time spent (in minutes): 39mins
[2024-11-22 15:00] VITALS: BP 150/63
[2024-11-22 17:33] VITALS: BP 147/63
--- NOTE | 2024-11-23 10:44 | W.HF.CON ---
Heart Failure
- LV Function
Left ventricular function study result: LV Ejection fraction >/= 50%
Ejection Fraction Percentage: 50-55
- ARNI
Patient already on ARNI: No
Heart Failure ARNI Not Indicated: LV Ejection Fraction >/= 40%
- ACEI/ARB
Patient already on ACEI/ARB: Yes
- Beta Juliette
Patient already on Evidence Based Beta Juliette: Yes
- Mineralocorticord Receptor Antagonist
Patient already on MRA: Yes
- SGLT-2 Inhibitor
Patient already on SGLT-2 Inhibitor: Yes
- NYHA CHF Classification
NYHA CHF Classification Level: Class III - Symptoms w/ min exertion, interferes w/ nml daily activity
- ACC/AHA Stage
ACC/AHA Stage: Stage C: Symptomatic Heart Failure
--- NOTE | 2024-11-23 14:21 | W.DCSUMMARY ---
Discharge Summary
Discharge Data
Date of Admission: 11/19/24
Date of Discharge: 11/22/24
Total time spent discharging patient (in min): 31
-
Pending Results: No
Hospital Course
Mrs. Gutierres is a 69-year-old female with a past medical history of chronic obstructive pulmonary disease, Raynaud's disease, hepatitis B, and latent tuberculosis in addition to cardiac arrhythmia requiring pacemaker who presented to [place] [facility] on 11/19/2024 with 3 days of shortness of breath, a pressure-like sensation of the chest, and lower extremity edema.
ED COURSE
In the emergency department, patient exhibited jugular venous distention, bilateral pulmonary crackles and 2+ edema of the lower extremities bilaterally. Additionally she was in hypertensive emergency with a blood pressure of 199/99.
Laboratory studies showed an elevated white count of 17.7 K, and an elevated troponin of 0.546. Additionally, proBNP was 10,000.
A chest x-ray revealed mild to moderate pulmonary interstitial edema. Underlying chronic interstitial lung disease could not be ruled out.
2 EKGs showed a ventricularly paced rhythm, 1 EKG showed complete heart block. Both showed premature ventricular contractions and premature atrial contractions.
The patient was given an aspirin loading dose, started on enalaprilat and IV Lasix and admitted for further evaluation.
HOSPITAL COURSE
The patient's troponin elevations were trended over the course of the admission. Additionally, patient was evaluated by cardiology. Given low level swings in troponin values, it was felt that these elevations in troponin were likely secondary to
heart failure exacerbation. After the patient was started on Lasix, her hypoxia resolved. An echocardiogram showed an ejection fraction of 50 to 55%. Patient had no prior history of heart failure and thus this is likely a newly diagnosed heart
failure with preserved ejection fraction. The patient was given high-dose IV Lasix for the first 48 hours and then switched to oral Lasix 40 mg/day which should be her continuing home dose. Given the patient's initial presentation with hypoxia,
the patient was given a home oxygen assessment. She was able to saturate at 96% on room air with ambulation. The patient was started on additional guideline directed medical therapy including metoprolol 25 mg orally once daily, spironolactone 25
mg once daily, and Farxiga 10 mg orally once daily.
With respect to the patient's elevated blood pressures, the patient was started on valsartan and Aldactone by cardiology. The patient's blood pressure was adequately controlled by the day for discharge.
During the course of her stay, the patient exhibited dry cough and bilateral lower rib cage pain. This cough was frequent and occasionally brought up sputum. She was maintained on Robitussin and nebulizer therapy while in the hospital with
lidocaine patches for her lower rib cage pain. However, given the patient's history of Raynaud's and the above chest x-ray findings, it is possible that the patient is presenting with some sort of systemic sclerosis or interstitial lung disease as
well. The patient will follow-up with pulmonology as well as establish care with a gas torch brazier.
Given the patient's history of COPD, the patient noted being provided Symbicort and albuterol by her primary care provider. However, she has never had any formal pulmonary function testing in the past. The patient will follow-up with the
unisaw operator in order to follow-up on this condition.
DISCHARGE RECOMMENDATIONS
The patient was discharged with a new diagnosis of heart failure with preserved ejection fraction. She was started on guideline directed medical therapy with:
Lasix 40 mg/day
Metoprolol 25 mg/day
Spironolactone 25 mg/day
Farxiga 10 mg/day
Patient to follow-up with cardiology in 2 weeks for further recommendations.
The patient was discharged with 2 new medications for blood pressure control:
Spironolactone 25 mg/day (as above)
Valsartan 160 mg/day
Patient to follow-up with primary care provider in less than 2 weeks.
Patient noted wanting to find a primary care provider closer to the area, was given information for the primary care residency clinic.
Given history of Raynaud's and possible findings of interstitial lung disease on chest x-ray, he was recommended the patient follow-up with gas torch brazier in less than 2 weeks.
Patient will follow-up with unisaw operator in less than 2 weeks for formal pulmonary function testing and additional management of her chronic obstructive pulmonary disease.
Discharge Plan
-
Patient Disposition: Home (Routine Discharge)
Discharge Diagnosis/Procedures: Hypoxic respite insufficiency, diastolic heart failure, Troponin elevation, Uncontrolled HTN
Condition: Fair
Diet: 2 Gram Sodium
Activity: As tolerated
Driving Restrictions: As prior to admission
Bathing Restrictions: OK to Shower
Activity Restrictions/Additional Instructions:
Please follow-up appointment with Dr. Dion Haq/gas torch brazier
Please follow-up with Dr Kaykay Chaney/unisaw operator.
Instructions: *PCP/Other Window Sash Installer Heart Failure Instructions
Referrals:
Sarahi Marcus NP [Specified Professional Personl, Cardiology] - 12/05/24 2:00 pm
Kaykay Chaney DO [Active, Pulmonary Medicine] - in two to three weeks
Referral Note: PFT
Dasha Castro DO [Family Provider, Family Practice] - in one week
Dion Mclaughlin MD [Active, Rheumatology] - in two to four weeks
Prescriptions:
New
furosemide 40 mg Tablet
40 mg PO DAILY Qty: 30 2RF
spironolactone 25 mg Tablet
25 mg PO DAILY Qty: 30 2RF
aspirin 81 mg Tablet,Chewable
81 mg PO DAILY Qty: 30 2RF
valsartan 160 mg Tablet
160 mg PO DAILY Qty: 30 2RF
budesonide-formoterol [Symbicort] 160-4.5 mcg/actuation Hfa Aerosol Inhaler
2 puff inhalation R BID Qty: 10.2 1RF
dapagliflozin propanediol 10 mg Tablet
10 mg PO DAILY Qty: 30 2RF
metoprolol succinate 25 mg Tablet Extended Release 24 Hr
25 mg PO DAILY Qty: 30 2RF
albuterol sulfate 90 mcg/actuation Hfa Aerosol Inhaler
2 puff inhalation R Q6HPRN PRN (Reason: Shortness breath) Qty: 8.5 1RF
Continued
vitamin E 268 mg (400 unit) Capsule
268 mg PO DAILY
cholecalciferol (vitamin D3) [Vitamin D3] 25 mcg (1,000 unit) Tablet
25 mcg PO DAILY
Discontinued
albuterol sulfate [ProAir HFA] 90 mcg/actuation Hfa Aerosol Inhaler
2 puff INHALATION R Q6HPRN PRN (Reason: sob)
budesonide-formoterol [Symbicort] 160-4.5 mcg/actuation Hfa Aerosol Inhaler
2 inh INHALATION R BID
Discharge Orders:
Discharge Patient (As Directed); Ordered 11/22/24
Ordered By: Jah Schreiber
Discharge Date and Time
Discharge Date/Time: 11/22/24 17:41
Print Language: JORDANIAN
== END 2024-11-22 17:41 | disposition home or self-care (01) | DRG 291 ==
LOC: 3 WEST ACU 23:02
PROVIDERS: Emergency Medicine; Nurse Practitioner Gerontology; ADMITTING PHYSICIAN Internal Medicine; ATTENDING PHYSICIAN Hospitalist; CONSULT PHYSICIAN Internal Medicine; CONSULT PHYSICIAN Internal Medicine Cardiovascular Disease; EMERGENCY PHYSICIAN Emergency Medicine; FAMILY PHYSICIAN General Practice
DX: I11.0 Hypertensive heart disease with heart failure (principal); I50.33 Acute on chronic diastolic (congestive) heart failure; I16.1 Hypertensive emergency; I45.2 Bifascicular block; I44.2 Atrioventricular block, complete; I47.19 Other supraventricular tachycardia; I47.21 Torsades de pointes; Z68.1 Body mass index [BMI] 19.9 or less, adult; R07.81 Pleurodynia; R09.02 Hypoxemia; R63.6 Underweight; I27.20 Pulmonary hypertension, unspecified; R06.89 Other abnormalities of breathing; I49.3 Ventricular premature depolarization; I08.1 Rheumatic disorders of both mitral and tricuspid valves; I73.00 Raynaud's syndrome without gangrene; J44.9 Chronic obstructive pulmonary disease, unspecified; Z60.2 Problems related to living alone; Z86.15 Personal history of latent tuberculosis infection; Z95.0 Presence of cardiac pacemaker; Z87.891 Personal history of nicotine dependence; Z79.51 Long term (current) use of inhaled steroids; Z87.01 Personal history of pneumonia (recurrent); Z86.19 Personal history of other infectious and parasitic diseases
CPT/HCPCS: 71045; 80048; 80053; 80061; 83036; 83735; 83880; 84443; 84484; 85025; 85027; 85379; 85610; 85730; 93005; 93306; 94640; 96374; 99291

== ENCOUNTER → 2024-12-26 07:56 | Outpatient (REF) | payer MEDICARE, SELFPAY | LOC: HWRAD 07:56 | PROVIDERS: ATTENDING PHYSICIAN General Practice; REFERRING PHYSICIAN Internal Medicine | DX: R63.4 Abnormal weight loss (principal) | CPT/HCPCS: 71250; 74176 ==